=== PATIENT | female | born 1980 | race Caucasian/White ===

== ENCOUNTER 2020-09-04 01:44 | Outpatient (CLI) | payer BC, SELFPAY ==
[2020-09-04 18:12] LABS: SARS-CoV-2 RNA PCR Negative
== END 2020-09-04 01:45 | disposition home or self-care (01) ==
LOC: ANHCOVIDDT 01:45
PROVIDERS: Family Provider Family Medicine; PCP Family Medicine; Visit Provider Internal Medicine Gastroenterology
DX: Z01.812 Encounter for preprocedural laboratory examination (principal); Z20.822 Contact with and (suspected) exposure to COVID-19
CPT/HCPCS: C9803; U0003; U0005

== ENCOUNTER 2020-09-07 02:35 | Day surgery (SDC) | payer BC, SELFPAY ==
[2020-08-22 14:13] VITALS: BMI 31.6
--- NOTE | 2020-09-05 15:39 | WPDANESEPPF ---
Anes - Initial Pre Proc Eval Procedure: Operation Date: 09/07/20 09:30 Proposed Procedures p Esophagogastroduodenoscopy - Yony Alexandra MD Date/Time: 09/05/20 15:39 Surgeon: Yony Alexandra MD Pre Op Diagnosis: abdominal pain Patient Data Age: 40 Gender: F Height: 1.65 m Weight: 86.3 kg Allergies Allergy/AdvReac Type Severity Reaction Status Date / Time No Known Allergies Allergy Mild Verified 09/07/20 08:27 Home Medications Medication Instructions Recorded Confirmed Type magnesium oxide 400 mg PO DAILY 08/01/20 09/07/20 History norethindrone 1.5 mg-ethinyl 1 tablet PO DAILY 08/01/20 09/07/20 History estradiol 30 mcg(21)/iron 75 mg(7) tablet peppermint oil 90 mg 90 mg PO BID #60 ea 08/01/20 09/07/20 Rx capsule,delayed,extended release sertraline 50 mg PO DAILY 09/07/20 09/07/20 History Patient hx anesthesia problems: none Family hx anesthesia problems: none PMFSH Past Medical History Medical History (Updated 09/07/20 @ 08:50 by Abram Guzman DO) Anxiety Major depressive disorder, single episode, moderate Surgical History Surgical History (Updated 09/05/20 @ 15:39 by Abram Guzman DO) History of tubal ligation Family History Family History Grandparent Family history of Alzheimer's disease Family history of cardiovascular disease Mother Depression Family history of Alzheimer's disease Father Family history of malignant neoplasm of thyroid Other Family history of glaucoma Family history of hypercholesterolemia Family history of malignant neoplasm of ovary Social History Social History Smoking status: Never smoker Alcohol intake: current Alcohol use details: RARE Living arrangements: with family Spiritual care concerns: No Anes - Eval Final PreProcedure Day of Procedure 09/05/20 15:39 Patient weight: obese Heart: regular rate and rhythm Lungs: clear to auscultation and normal air movement Airway: Mallampati scale class II Neurological: alert and oriented Last oral intake: >/= 8 hours ASA classification: II Emergent: no Anesthetic plan: proceed Anesthesia type and monitoring: general GIVS and standard monitoring Informed Consent: The patient's anesthetic plan and its attendant risks and benefits were discussed with the patient/family/POA. Questions were solicited and answers provided to the satisfaction of the patient/family/POA.
[2020-09-07 08:29] VITALS: BP 120/65; PULSE 77; RESP 17; TEMP 36.5; O2SAT 98; BMI 32.8
[2020-09-07] MEDS: LACTATED RINGERS 1,000 ML 150 ML IV CONT (08:38)
--- NOTE | 2020-09-07 09:31 | PM.HPGS ---
History of Present Illness History of Present Illness Consent: Risks, benefits, and alternatives have been discussed and questions answered. Patient agrees to proceed with procedure. Chief complaint: abdominal pain Narrative: Catracho Gagnon is a 40 year old female with abdominal pain and bloating, better with low-fodmap diet Review of Systems Constitutional: Constitutional: Denies headache(s) and Denies weakness Eyes: Eyes: Denies blurry vision ENT: Reports Normal hearing present, Denies headache(s) and Denies neck pain Cardiovascular: Cardiovascular: Denies chest pain and Denies dyspnea Respiratory: Respiratory: Denies dyspnea Gastrointestinal: Gastrointestinal: Reports no additional gastrointestinal complaints Genitourinary: Genitourinary: Denies dysuria Musculoskeletal: Musculoskeletal: Denies neck pain Integumentary/Breasts: Skin/Breast: Denies dry skin Neurologic: Reports Normal hearing present, Denies headache(s) and Denies weakness Psychiatric: Psychiatric: Denies anxiety Endocrine: Endocrine: Denies change in body appearance Hematologic/Lymphatic: Hematologic/Lymphatic: Denies easy bleeding Allergic/Immunologic: Allergic/Immunologic: Denies urticaria PMFSH Past Medical History Medical History (Updated 09/07/20 @ 08:50 by Abram Guzman DO) Anxiety Major depressive disorder, single episode, moderate Surgical History Surgical History (Updated 09/05/20 @ 15:39 by Abram Guzman DO) History of tubal ligation Family History Family History Grandparent Family history of Alzheimer's disease Family history of cardiovascular disease Mother Depression Family history of Alzheimer's disease Father Family history of malignant neoplasm of thyroid Other Family history of glaucoma Family history of hypercholesterolemia Family history of malignant neoplasm of ovary Social History Social History Smoking status: Never smoker Alcohol intake: current Alcohol use details: RARE Living arrangements: with family Spiritual care concerns: No Meds Home Medications and Allergies Home Medications Medication Instructions Recorded Confirmed Type magnesium oxide 400 mg PO DAILY 08/01/20 09/07/20 History norethindrone 1.5 mg-ethinyl 1 tablet PO DAILY 08/01/20 09/07/20 History estradiol 30 mcg(21)/iron 75 mg(7) tablet peppermint oil 90 mg 90 mg PO BID #60 ea 08/01/20 09/07/20 Rx capsule,delayed,extended release sertraline 50 mg PO DAILY 09/07/20 09/07/20 History Allergies Allergy/AdvReac Type Severity Reaction Status Date / Time No Known Allergies Allergy Mild Verified 09/07/20 08:27 Vital Signs Vital Signs - 24 hr 09/07/20 08:29 Temperature 97.7 F Pulse Rate 77 Respiratory Rate 17 Blood Pressure 120/65 Pulse Oximetry 98 Exam Const: General: comfortable and no acute distress HENMT: General nose exam: Normal nares present Eyes: General: appearance normal, both eyes and all related structures Neck: Neck: no JVD Resp: Auscultation: clear to auscultation bilaterally Cardio: Rate: regular rate Rhythm: regular rhythm GI: Inspection: non-distended GI Palp: Yes Soft to palpation Skin: General skin exam: normal color Neuro: General: gait normal Speech: normal speech Extrem: General: normal to inspection Psych: Mental Status: mental status grossly normal Assessment and Plan Assessment and plan (1) Abdominal bloating: Code(s): R14.0 - Abdominal distension (gaseous) Status: Acute Assessment and Plan: egd with bx
[2020-09-07] MEDS: BENZOCAINE (*SP) 60 ML SPRAY CAN (HURRICAINE) 1 SPRAY MUCOUS MEM (09:38)
[2020-09-07 09:49] VITALS: BP 86/52; PULSE 84; RESP 19; O2SAT 99
[2020-09-07 09:59] VITALS: BP 97/63; PULSE 77; RESP 20; O2SAT 99
[2020-09-07 10:09] VITALS: BP 94/58; PULSE 67; RESP 19; O2SAT 99
[2020-09-07 10:19] VITALS: BP 102/64; PULSE 66; RESP 18; O2SAT 99
== END 2020-09-07 10:33 | disposition home or self-care (01) ==
PROVIDERS: Family Provider Family Medicine; PCP Family Medicine; Visit Provider Internal Medicine Gastroenterology
PROC: 0DJ08ZZ Inspection of Upper Intestinal Tract, Via Natural or Artificial Opening Endoscopic (ICD-10-PCS; CPT 43235; principal; 2020-09-07 09:30)
DX: R10.9 Unspecified abdominal pain (principal); K30 Functional dyspepsia; R14.0 Abdominal distension (gaseous); K29.60 Other gastritis without bleeding; F41.9 Anxiety disorder, unspecified; F32.9 Major depressive disorder, single episode, unspecified; E66.9 Obesity, unspecified; Z68.32 Body mass index [BMI] 32.0-32.9, adult
CPT/HCPCS: 43239; 87081; 88305; J2001; J2704; J7120

== ENCOUNTER 2023-11-29 20:49 | Emergency (ER) | payer BC, SELFPAY ==
[2023-11-29 21:02] VITALS: BP 102/63; PULSE 69; RESP 13; TEMP 36.6; O2SAT 100
--- NOTE | 2023-11-29 22:18 | ED.WOUNDLAC ---
HPI - Wound/Laceration General Chief Complaint: Wound/Laceration Stated Complaint: toe laceration Time Seen by Provider: 11/29/23 21:47 Source: patient Mode of arrival: ambulatory Limitations: no limitations History of Present Illness HPI narrative: This is a 43-year-old female who presents to the ED with chief complaint of laceration to the left pinky toe. Reports that she was walking through the room and try to avoid stepping on her dog. This caused her to step onto the edge of the laundry basket. Reports laceration to medial side of the toe near the base. Denies any further side of pain or injury. Denies numbness or weakness Related Data Home Medications Medication Instructions Recorded Confirmed magnesium oxide 400 mg PO DAILY 08/01/20 09/07/20 norethindrone 1.5 mg-ethinyl 1 tablet PO DAILY 08/01/20 09/07/20 estradiol 30 mcg(21)/iron 75 mg(7) tablet ([place] Fe 1.5/30 (28)) sertraline 50 mg tablet 50 mg PO DAILY 09/07/20 09/07/20 Allergies Allergy/AdvReac Type Severity Reaction Status Date / Time No Known Allergies Allergy Mild Verified 10/15/20 14:33 Review of Systems Review of Systems: All systems as dictated in HPI [facility] Past Medical History Medical History (Updated 11/30/23 @ 00:00 by Thomas Gambino) Anxiety Erosive gastritis Gastric erosion Irritable bowel syndrome Major depressive disorder, single episode, moderate Surgical History Surgical History (Updated 01/28/21 @ 14:14 by Yana Fink MD) History of tubal ligation Hx of colonoscopy 6.12.21 normal. repeat age 47 Family History Family History Grandparent Family history of Alzheimer's disease Family history of cardiovascular disease Mother Depression Family history of Alzheimer's disease Father Family history of malignant neoplasm of thyroid Other Family history of glaucoma Family history of hypercholesterolemia Family history of malignant neoplasm of ovary Social History Social History Smoking status: Never smoker Alcohol intake: current Alcohol use details: RARE Living arrangements: with family Spiritual care concerns: No Exam Narrative: GENERAL: Well-appearing, well-nourished, and in no acute distress. HEAD: Normocephalic, atraumatic. EYES: PERRLA and EOMI. ENT: Nares clear, no rhinorrhea or epistaxis. Mucous membranes moist. Oropharynx without tonsillar hypertrophy exudate or other lesions. NECK: Supple. No adenopathy or masses. CHEST: No respiratory distress. Clear to auscultation. No wheezes rales or rhonchi HEART: Regular rate and rhythm. No murmur heard. Normal peripheral pulses. ABDOMEN: Soft, nontender, nondistended, normal active bowel sounds. MSK: Normal range of motion. No edema. SKIN: 2 cm laceration that wraps from anterior to posterior base of left 5th pinky toe on the medial side. Neurovascular intact distally NEURO: Alert and oriented x3. No focal deficits. PSYCH: Normal mood and affect. Course Vital Signs Vital signs: Vital Signs Temperature 97.8 F 11/29/23 21:02 Pulse Rate 69 11/29/23 21:02 Respiratory Rate 13 11/29/23 21:02 Blood Pressure 102/63 11/29/23 21:02 Pulse Oximetry 100 11/29/23 21:02 Oxygen Delivery Room Air 11/29/23 21:02 Temperature 98.2 F 11/29/23 23:24 Pulse Rate 89 11/29/23 23:24 Respiratory Rate 19 11/29/23 23:24 Blood Pressure 138/86 11/29/23 23:24 Pulse Oximetry 100 11/29/23 23:24 Oxygen Delivery Room Air 11/29/23 21:02 Procedures Laceration Laceration 1: Date: 11/29/23 Time: 23:03 Site: lower extremity (Right 5th toe) Side (If applicable): right Size (cm): 2 Description: linear Depth: simple, single layer Local Anesthetic: lidocaine 1% Amount of anesthesia used (mL): 2 Pre-repair: wound ex
[2023-11-29 23:24] VITALS: BP 138/86; PULSE 89; RESP 19; TEMP 36.8; O2SAT 100
== END 2023-11-29 23:13 | disposition home or self-care (01) ==
PROVIDERS: Emergency Provider Physician Assistant
DX: S91.115A Laceration without foreign body of left lesser toe(s) without damage to nail, initial encounter (principal); K58.9 Irritable bowel syndrome, unspecified; F41.9 Anxiety disorder, unspecified; W26.8XXA Contact with other sharp object(s), not elsewhere classified, initial encounter
CPT/HCPCS: 12001; 99282

== ENCOUNTER 2024-09-02 19:19 | Emergency (ER) | payer BC, SELFPAY ==
--- NOTE | ~2024-09-02 | XR_ITS ---
HISTORY: ankle injury COMPARISON: None TECHNIQUE: 2 limited views of the right ankle were performed. FINDINGS: Acute fractures involving the distal fibula and likely the syndesmosis with disruption of the Kohli ( with lateral dislocation of the distal fracture fragments). Significant soft tissue swelling bilaterally (medially more than laterally). Likely additional fracture within the distal tibia, with limited evaluation on the 2 view examination . IMPRESSION: Complex right ankle fracture, with disruption ankle mortise and lateral dislocation of t he distal fracture fragments. Reviewed, dictated and finalized at location A. ATRIC ANESTHESIOLOGIST IMPRESSION: Complex right ankle fracture, with disruption ankle mortise and la teral dislocation of the distal fracture fragments.
--- NOTE | ~2024-09-02 | XR_ITS ---
HISTORY: post reduction COMPARISON: 09/02/2024 approximately 45 minutes earlier TECHNIQUE: 3 views of the right ankle were performed FINDINGS: Post reduction imaging demonstrates improved alignment of the right ankle. Redemonstration of significant soft tissue swelling, as well as fracture deformity within the right a nkle. IMPRESSION: As above. Reviewed, dictated and finalized at location A. ER IMPRESSION: As above.
--- NOTE | ~2024-09-02 | CT_ITS ---
CLINICAL INDICATION: Right ankle fracture. COMPARISON: Reference is made with multiple plain film evaluations of the right ankle. TECHNIQUE: Computed tomography (CT) of the right ankle was performed without intravenous contrast. Th e dose-length product was 606.41 mGy-cm. FINDINGS/OBSERVATIONS: Acute oblique fracture of the right distal fibula. Comminuted fracture of the distal right tibia, along the posterior-most margin Significant soft tissue swelling is identified within the expected course of the syndesmosis for whic h disruption is suspected. IMPRESSION: Acute fracture of the lateral malleolus and the posterior malleolus likely with disruption of the syn desmosis, as detailed above. Reviewed, dictated and finalized at location A. D TECHNICIAN IMPRESSION: Acute fracture of the lateral malleolus and the posterior malleolus likely with disruption of the syndesmosis, as detailed above.
--- OUTSIDE RECORDS SUMMARY | 2024-09-02 19:21 | XMS_ITS | Clinical Summary ---
Author Organization [facility] Address [address] [place] [address] Care Team Providers Care Field Contact Person Name Role Phone Ricardo Gillis MD Primary Care Provider Allergies No known active allergies Medications LORazepam (ATIVAN) 1 mg tablet Take 1 tablet (1 mg total) by mouth 2 (two) times a day as needed (abd spasm) for up to 7 days 14 tablet 2 Active Additional Information Patient not taking.Reported on 01/11/2024 ergocalciferol (VITAMIN D) 50,000 unit capsule 4 Active levoFLOXacin (LEVAQUIN) 500 mg tablet TAKE 1 TABLET BY MOUTH DAILY FOR 10 DAYS 4 Active levonorgestreL (LILETTA) 20.4 mcg/24 hr (8 yrs) 52 mg IUD by intrauterine route once Active sertraline (ZOLOFT) 50 mg tabletIndicatio ns:Anxiety Take 1 tablet (50 mg total) by mouth daily 90 tablet 3 4 Active meloxicam (MOBIC) 15 mg tablet Take 1 tablet (15 mg total) by mouth daily 30 tablet 4 Active Active Problems Problem Noted Date Diagnosed Date Acute pain of right knee 03/14/2024 Injury of right knee 03/14/2024 Biliary tract disease 04/23/2022 Abdominal pain 04/22/2022 Right upper quadrant pain 04/11/2022 Overview (04/22/2022): Added automatically from request for surgery [id number] 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 Patient encounter status 10/11/2015 Overview (11/15/2016): Postoperative follow-up Pilar cyst 09/13/2015 Overview (11/15/2016): Pilar cysts Surgical History Surgery Date Site/Laterality Comments SECTION COLONOSCOPY UPPER GASTROINTESTINAL ENDOSCOPY TUBAL LIGATION Medical History Medical History Date Comments Depression Chronic constipation Family History Medical History Relation Name Comments Heart disease Maternal Grandfather Dementia Maternal Grandmother Colon cancer Neg Hx Relation Name Status Comments Maternal Grandfather Maternal Grandmother Mother's Sister 1 Mother's Sister 2 Alive Other great aunt Alive ovarian cancer Social History Tobacco Use Types Packs/Day Years Used Date Smoking Tobacco: Never Tobacco Cessation:Counseling Given: Not Answered Alcohol Use Standard Drinks/Week Comments No 0 (1 standard drink = 0.6 oz pur e alcohol) AUDIT-C Answer Date Recorded Q1: How often do you have a drink containing alc ohol? 2-4 times a month 01/11/2024 Q2: How many drinks containi ng alcohol do you have on a typical day when you are drinking? 1 or 2 01/11/2024 Q3: How often do you have si x or more drinks on one occasion? 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 # 2: 05/08/2015 LTCS w/ BTL for Breech 39 5/7 weeks 7#15 Kadi . Last Filed Vital Signs Vital Sign Reading Time Taken Comments Blood Pressure 110/60 01/11/2024 1:00 PM CDT Pulse 78 04/23/2022 10:00 AM CDT Temperature 36.8 ??C (98.3 ??F) 04/23/2022 10:00 AM C DT Respiratory Rate 16 04/23/2022 10:00 AM CDT Oxygen Saturation 100% 04/23/2022 10:00 AM CDT Inhaled Oxygen Concentration - - Weight 90.7 kg (200 lb) 03/14/2024 3:34 PM CDT Height 167.6 cm (5' 6 ) 03/14/2024 3:34 PM CDT Body Mass Index 32.28 03/14/2024 3:34 PM CDT Plan of Treatment Health Maintenance Due Date Last Done Comments Depression Screening 1982 Hepatitis C Screening 1982 Varicella Vaccines (1 of 2 - 13+ 2-dose series) 1995 Hepatitis B Screening 2000 Covid-19 Vaccine (2023-2 5 season) 2024 07/02/2021, 11/16/2020, 10/26/2020 Influenza Vaccine (#1) 2024 , 10/19/2018 Breast Cancer Screening-Mammogram 08/11/2024 08/11/2023, 08/11/2023, 07/23/2022 Cervical Cancer Screening 01/10/2025 01/11/2024 Regular Well Visit/Exam 18-64 01/10/2025 01/11/2024 DTaP/Tdap/Td Vaccine (2 - Td or Tdap) 05/03/2030 05/03/2020 HPV Vaccines Aged Out No longer eligi ble based on patient's age to complete this topic Pneumococcal vaccine <65 Aged Out No longer eligible based on patient's age to complete this topic Medical Devices Explanted Type Area Network Professional Device Identifier Shelf Expiration Date Model / Serial / Lot [employer] Mar Wallflex 8mm 8.5fr 60mm 194cm Rapid Exchange Full Cover Closed [id number] - [id number] Implanted:Qty: 1 on 04/21/2022 by Bipin Whitlock MD at [facility] Explanted:Qty: 1 on 04/23/2022 by Bipin Whitlock MD at [facility] Stent N/A: Bile Duct Gary Scientific Mar [id number] 09/24/2023 [id number] / / [id number] Barajas Flexi-Stent 7fr 3cm Small Pigtail Flexible .035in Stent [id number] - [id number] Implanted:Qty: 1 on 04/21/2022 by Bipin Whitlock MD at [facility] Explanted:Qty: 1 on 04/23/2022 by Bipin Whitlock MD at [facility] Stent N/A: Bile Duct [employer] [id number] 08/10/2021 [id number] / / [id number] Procedures Procedure Name Priority Date/Time Associated Diagnosis Comments PAP AND HPV, REFLEX TO HPV GENOTYPES Routine 01/11/2024 3:04 PM CDT Cervical cancer screening SCREENING MAMMOGRAM BILATERAL W JORGE Schedule Routine, Read Routine (OP Routine) 08/11/2023 11:40 AM MARINE TECHNICIAN Screening mammogram, encounter for from Last 3 Months or Most Recently Relevant to Health Maintenance Results * Pap and HPV, reflex to HPV Genotypes (01/11/2024 3:04 PM CDT) Clinical indication Comment [facility] - 01 Comment:NEGATIVE FOR INTRAEP ITHELIAL LESION OR MALIGNANCY. Specimen adequacy: Comment [facility] - 01 Comment: Satisfactory for evaluation. ??Endocervical and/or squamous metaplastic cells (endocervical component) are present. Clinician provided ICD10 Comment [facility] - 01 Comment:Z12.4 Performed by Comment [facility] - 01 Comment:Leo Arceo totechnologist (ASCP) . . [facility] - 01 Note: Comment [facility] - 01 Comment: The Pap smear is a screening test designed to aid in the detection of premalignant and malignant conditions of the uterine cervix. ??It is not a diagnostic procedure and should not be used as the sole means of detecting cervical cancer. ??Both false-positive and false-negative reports do occur. Test methodology Comment [facility] - 01 Comment: This liquid based ThinPrep(R) pap test was screened with the use of an image guided system. HPV Aptima Negative Negative [facility] 02 Comment: This nucleic acid amplification test detects fourteen high-risk HPV types (16,18,31,33,35,39,45,51,52,56,58,59,66,68) without differentiation. HPV Genotype Reflex Comment [facility] - 01 Comment:Criteria not met, HP V Genotype not performed. Thin prep 01/11/2024 3:04 PM CDT 01/12/2024 Narrative [facility] - 01/13/2024 12:11 PM CDT Performed at: ??01 - [facility] ??[id number] Scribing Machine Operator: Tianna Cody MD, Phone: ??[phone] Performed at: ??02 - [facility] ??[id number] Scribing Machine Operator: Tianna Cody MD, Phone: ??[phone] Specimen Comment: Source.............Cervix;Endocervix Specimen Comment: No. of containers..01 ThinPrep Vial Jazmín Day NP LAB CYTOLOGY ORDERABLES Final Result [facility] - 01 LAB [facility] 02 * Screening Mammogram Bilateral W Jorge (08/11/2023 11:40 AM MARINE TECHNICIAN) Anatomical Region Laterality Modality Breast Bilateral Mammography Addenda Addendum by Abbi Ness MD on 08/12/2023 3:22 PM MARINE TECHNICIAN Overall Assessment: 2 - Benign Narrative 08/11/2023 11:46 AM MARINE TECHNICIAN Examination: Screening Mammogram Bilateral W Jorge: 08/11/23 Clinical: Screening mammogram, encounter for. Prior Study Comparisons: Comparison was made to the prior available relevant studies at the time of interpretation. Findings: Bilateral No significant masses, malignant type calcifications, skin thickening, nipple retraction, or significant lymphadenopathy is noted in either breast. ??The CAD review showed no significant findings. The breasts are heterogeneously dense, which may obscure small masses. The patient will be notified of results by letter. Impression: BI-RADS?? ATLAS category (overall): 2 - Benign ?? There is no mammographic evidence of malignancy. Routine Screening Mammogram in 1 Yr is recommended for bilateral Overall Assessment: 2 - Benign us Self Screening Mammogram IMG MAMMO PROCEDURES Ed ited Result - Final from Last 3 Months or Most Recently Relevant to Health Maintenance Insurance [facility] FEDERAL [facility] FEDERAL Advance Directives For more information, please contact: [phone] * Full Code (Latest Code Status on File) Date Activated Date Inactivated Comments 04/09/2022 9:33 AM 04/09/2022 8:07 PM Care Teams Field Contact Person Relationship Specialty Start Date End Date Ricardo Gillis MD [address] [facility] [address] [place] [address] PCP - General Endocrinology Diabetes & Metabolism 04/23/22
--- OUTSIDE RECORDS SUMMARY | 2024-09-02 19:21 | XMS_ITS | Referral Summary ---
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 Gender Identity Not on file Sexual Orientation Not on file Last Filed Vital Signs Vital Sign Reading [...] 03/14/2024 3:34 PM CDT Plan of Treatment Not on file Medical Devices Explanted Type Area Tube Winder Hand Device Identifier Shelf Expiration Date Model / Serial / Lot [place] [employer] Bernard Wallflex 8mm 8.5fr 60mm 194cm Rapid Exchange Full Cover Closed [id number] - [id number] Implanted:Qty: 1 on 04/21/2022 by Bipin Whitlock MD at Explanted:Qty: 1 on 04/23/2022 by Bipin Whitlock MD at Stent N/A: Bile Duct [employer] Bernard [id number] 09/24/2023 [id number] / / [id number] [place] Barajas Flexi-Stent 7fr 3cm Small Pigtail Flexible .035in Stent [id number] - [id number] Implanted:Qty: 1 on 04/21/2022 by Bipin Whitlock MD at Explanted:Qty: 1 on 04/23/2022 by Bipin Whitlock MD at Stent N/A: Bile Duct [employer] [id number] 08/10/2021 [id number] / / [id number] Procedures Procedure Name Priority Date/Time Associated Diagnosis Comments PAP AND HPV, REFLEX TO HPV GENOTYPES Routine 01/11/2024 3:04 PM CDT Cervical cancer screening SCREENING MAMMOGRAM BILATERAL W SHANNAN Schedule Routine, Read Routine (OP Routine) 08/11/2023 11:40 AM FRICTION PAINT MACHINE TENDER Screening mammogram, encounter for from Last 3 [...] Comment [facility] - 01 Comment:Leo Arceo totechnologist (ASC) . . [facility] - 01 Note: Comment [...] guided system. HPV Aptima Negative Negative [facility] 02 Comment: This nucleic acid amplification test detects fourteen high-risk HPV types (16,18,31,33,35,39,45,51,52,56,58,59,66,68) without differentiation. HPV Genotype Reflex Comment [facility] - 01 Comment:Criteria not met, HP V Genotype not performed. Thin prep 01/11/2024 3:04 PM CDT 01/12/2024 Narrative [facility] - 01/13/2024 12:11 PM CDT Performed at: ??01 - [facility] ??[id number] Bariatric Surgeon: Tianna Cody MD, Phone: ??[phone] Performed at: ??02 - [facility] [address] ??[id number] Bariatric Surgeon: Tianna Cody MD, Phone: ??[phone] Specimen Comment: Source.............Cervix;Endocervix Specimen Comment: No. of containers..01 ThinPrep Vial Jazmín Day DRIVER MESSENGER LAB CYTOLOGY ORDERABLES Final Result Performing Organization Address City/State/[facility] - 01 [facility] 02 * Screening Mammogram Bilateral W Shannan (08/11/2023 11:40 AM FRICTION PAINT MACHINE TENDER) Anatomical Region Laterality Modality Breast Bilateral Mammography Addenda Addendum by Abbi Ness MD on 08/12/2023 3:22 PM FRICTION PAINT MACHINE TENDER Overall Assessment: 2 - Benign Narrative 08/11/2023 11:46 AM FRICTION PAINT MACHINE TENDER Examination: Screening Mammogram Bilateral W Shannan: 08/11/23 Clinical: Screening mammogram, encounter for. Prior [...] to Health Maintenance Insurance [facility] FEDERAL [facility] FEDERAL FEDERAL Advance Directives For more information, please contact: [phone] * Full Code (Latest Code Status on File) Date Activated Date Inactivated Comments 04/09/2022 9:33 AM 04/09/2022 8:07 PM Care Teams Shop Clerk Relationship Specialty Start Date End Date Ricardo Gillis MD [address] [address] [place] [address] PCP - General Endocrinology Diabetes & Metabolism 04/23/22
--- OUTSIDE RECORDS SUMMARY | 2024-09-02 19:21 | XMS_ITS | Patient Health Record ---
Author Organization [facility] Address [address] [place] [address] Care Team Providers Care Delicatessen Clerk Name Role Phone Carlin GARCÍA, Ricardo Primary Care Provider Nella CHICAS ARSON INVESTIGATOR, JANESSA Unavailable [phone] ALLERGIES No Known Allergies REASON FOR REFERRAL No Information MEDICATIONS Medication SIG (Take, Route, Frequency, Duration) Notes Start Date End Date Status Famotidine 40 MG TAKE 1 TABLET BY STACIE TWICE DAILY AT BEDTIME for 90 Active Hyoscyamine Sulfate 0.125 MG DISSOLVE 1 TABLET UNDER THE TONGUE FOUR TIMES DAILY NEEDED for 90 Not-Taking Odalis FE 1.5/30 1.5-30 MG-MCG 1 tablet Orally Once a day Active Amitriptyline HCl 50 MG 1 tablet at bedt david Orally Once a day Active Sertraline HCl 50 MG 1 tablet Orally Onc e a day Active PLAN OF TREATMENT Pending Test Test Name Order Date Endoscopic Retrograde Cholangiopancreato graphy (ERCP) 04/11/2022 MRCP 03/03/2022 Insurance Providers Payer Name Payer Address Payer Phone Subscriber Number Group Number Insured Name Patient Relationship to Insured Coverage Start Date Coverage End Date BCBS-FE D [address] [place] [address] [phone] [id number] Aguayo Self - patient is the insured MEDICAL (GENERAL) HISTORY Surgical History Surgery Date(Month/Year) section 2014 colonoscopy- repeat in 10 years 2020 EGD 2020
--- OUTSIDE RECORDS SUMMARY | 2024-09-02 19:22 | XMS_ITS | Patient Health Record ---
Author Organization [employer] Address [address] [facility]. [address] [place] [id number] Care Team Providers Care Art Manager Name Role Phone Yana Fink MD Primary Care Provider Unav ailable David Casanova Unavailable [phone] Reason For Referral No Information Medications Medication SIG (Take, Route, Fr equency, Duration) Notes Start Date End Date Status Sertraline HCl Activ e OTC/Vitamins Magnesium Active BCP Active Social History Tobacco Use: Social History Observation Description Date Details (start date - stop date) Never Smoker NA - NA Tobacco Use/Smoking Question Answer Notes Are you a nonsmoker Problems Problem Type SNOMED Code ICD Code Onset Dates Problem Status W/U Status Risk Notes Problem 075229112 Family history of colonic polyps (Z83.71) Active confirmed She has a fa preston history of colon polyps in her father. She and her siblings were advised to have a colonoscopy starting at age 41. Problem 91488162 Abdominal pain (R10.9) Active confirmed She complains o f diffuse abdominal pain, which she describes as feeling like gas. It is occurring several times a week and when it does occur, it is debilitating. Symptoms are not relieved with having a bowel movement. Differential diagnosis includes constipation predominant IBS, slow transit constipation, SIBO, food sensitivities, or others. Problem 359511260 Bloating (R14.0) Active confirmed She has significant abdominal bloating. Biopsies on her upper endoscopy were negative for celiac disease. Other considerations include food sensitivities or SIBO. Problem 95380744 Constipation (K59.00) Active confirmed Problem 152095992 Abnormal bowel habits (R19.8) Active confirmed She has struggled with constipation most of her adult life. She started taking a magnesium supplement, which has helped with regularity. On her current regimen, she is having a bowel movement every 1-2 days. There has not been any blood in the stool. Plan Of Treatment Pending Test Test Name Order Date Colonoscopy 12/17/2020 Insurance Providers Payer Name Payer Address Payer Phone Subscriber Number Group Number Insured Name Patient Relationship to Insured Coverage Start Date Coverage End Date [address] [place] [phone] [id number] Vidal Gagnon Spouse - patient is the spouse of the insured Medical (General) History Medical History History ICD Code Depression Surgical History Surgery Date(Month/Year) Endoscopy (Outside Provider) 2019
[2024-09-02 19:30] VITALS: BP 102/80; PULSE 93; RESP 20; TEMP 36.3; O2SAT 100
[2024-09-02] MEDS: HYDROcodone/acetaminophen (*CRX) 5-325 MG TABLET 1 TAB PO ×2 (19:46→22:50)
--- OUTSIDE RECORDS SUMMARY | 2024-09-02 20:05 | XMS_ITS | Clinical Summary ---
Author Organization [facility] Address [address] [place] [id number] Care Team Providers Care Supervisor Metal Furniture Assembly Name Role Phone Unavailable Primary Care Provider Unavailabl e Encounters Date Type Department Care Team Description 08/31/2024 External Device Data STL ABSTRACTION Provider, Abstract 08/30/2024 External Device Data STL ABSTRACTION Provider, Abstract 07/12/2024 External Device Data STL ABSTRACTION Provider, Abstract 06/14/2024 External Device Data STL ABSTRACTION Provider, Abstract from Last 3 Months Social History Tobacco Use Types Packs/Day Years Used Date Smoking Tobacco: Never Assessed Comments Unknown Sex and Gender Information Value Date Recorded Sex Assigned at Not on file Legal Sex Female 1:25 PM CDT Gender Identity Not on file Sexual Orientation Not on file Plan of Treatment Health Maintenance Due Date Last Done Comments Pre-Diabetes and Diabetes Screening 1982 DTAP/TDAP/TD VACCINES (1 - Tdap) 2001 HEPATITIS B VACCINES (1 of 3 - 19+ 3-dose series) 2001 CERVICAL CANCER SCREENING 2012 INFLUENZA VACCINE (#1) 2024 BREAST CANCER SCREENING 08/11/2024 08/11/19 24, 07/23/2022 HPV VACCINES Aged Out No longer eligi ble based on patient's age to complete this topic PNEUMOCOCCAL VACCINE 0-64 YEARS Aged Out No longer eligible b ased on patient's age to complete this topic Insurance BCBS [facility]AL [facility]
--- OUTSIDE RECORDS SUMMARY | 2024-09-02 20:05 | XMS_ITS | Clinical Summary ---
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 Patient encounter [...] on file Legal Sex Female 8:58 AM MICA PLATE LAYER Gender Identity Not on file Sexual Orientation [...] this topic Medical Devices Explanted Type Area Label Maker Device Identifier Shelf Expiration Date Model / Serial / Lot [employer] Mar Wallflex 8mm 8.5fr 60mm 194cm Rapid Exchange Full Cover Closed [id number] - [id number] Implanted:Qty: 1 on 04/21/2022 by Bipin Whitlock MD at [facility] Explanted:Qty: 1 on 04/23/2022 by Bipin Whitlock MD at [facility] Stent N/A: Bile Duct [employer] Mar [id number] 09/24/2023 [id number] / / [id number] [employer] [place] Flexi-Stent 7fr 3cm Small Pigtail Flexible .035in Stent [id number] - [id number] Implanted:Qty: 1 on 04/21/2022 by Bipin Whitlock MD at [facility] Explanted:Qty: 1 on 04/23/2022 by Bipin Whitlock MD at [facility] Stent N/A: Bile Duct [employer] [id number] 08/10/2021 [id number] / / [id number] Procedures Procedure Name Priority Date/Time Associated Diagnosis Comments PAP AND HPV, REFLEX TO HPV GENOTYPES Routine 01/11/2024 3:04 PM CDT Cervical cancer screening SCREENING MAMMOGRAM BILATERAL W JORGE Schedule Routine, Read Routine (OP Routine) 08/11/2023 11:40 AM MICA PLATE LAYER Screening mammogram, encounter for from Last 3 [...] 12:11 PM CDT Performed at: ??01 - [facility] ??[id number] Sweeper Cleaner Industrial: Tianna Cody MD, Phone: ??[phone] Performed at: ??02 - [facility] ??[id number] Sweeper Cleaner Industrial: Tianna Cody MD, Phone: ??[phone] Specimen Comment: Source.............Cervix;Endocervix Specimen Comment: No. of containers..01 ThinPrep Vial Jazmín Day NP LAB CYTOLOGY ORDERABLES Final Result [facility] - 01 LAB MAR 02 * Screening Mammogram Bilateral W Jorge (08/11/2023 11:40 AM MICA PLATE LAYER) Anatomical Region Laterality Modality Breast Bilateral Mammography Addenda Addendum by Abbi Ness MD on 08/12/2023 3:22 PM MICA PLATE LAYER Overall Assessment: 2 - Benign Narrative 08/11/2023 11:46 AM MICA PLATE LAYER Examination: Screening Mammogram Bilateral W Jorge: 08/11/23 [...] Most Recently Relevant to Health Maintenance Insurance [facility] FEDERAL [facility] FEDERAL Advance Directives For more information, please contact: [phone] * Full Code (Latest Code Status on File) Date Activated Date Inactivated Comments 04/09/2022 9:33 AM 04/09/2022 8:07 PM Care Teams Community Service Worker Relationship Specialty Start Date End Date Ricardo Gillis MD [address] [facility] [address] [place] [address] PCP - General Endocrinology Diabetes & Metabolism 04/23/22
--- OUTSIDE RECORDS SUMMARY | 2024-09-02 20:05 | XMS_ITS | Referral Summary ---
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 Patient encounter [...] on file Legal Sex Female 8:58 AM STOCK SPECULATOR Gender Identity Not on file Sexual Orientation [...] on file Medical Devices Explanted Type Area Drill Sergeant Device Identifier Shelf Expiration Date Model / Serial / Lot [employer] Bernard Wallflex 8mm 8.5fr 60mm 194cm Rapid Exchange Full Cover Closed [id number] - [id number] Implanted:Qty: 1 on 04/21/2022 by Bipin Whitlock MD at [facility] Explanted:Qty: 1 on 04/23/2022 by Bipin Whitlock MD at [facility] Stent N/A: Bile Duct [employer] Bernard [id number] 09/24/2023 [id number] / / [id number] [employer] Barajas Flexi-Stent 7fr 3cm Small Pigtail Flexible .035in Stent 6571 - [id number] Implanted:Qty: 1 on 04/21/2022 by Bipin Whitlock MD at [facility] Explanted:Qty: 1 on 04/23/2022 by Bipin Whitlock MD at [facility] Stent N/A: Bile Duct [employer] [id number] 08/10/2021 [id number] / / [id number] Procedures Procedure Name Priority Date/Time Associated Diagnosis Comments PAP AND HPV, REFLEX TO HPV GENOTYPES Routine 01/11/2024 3:04 PM CDT Cervical cancer screening SCREENING MAMMOGRAM BILATERAL W SHANNAN Schedule Routine, Read Routine (OP Routine) 08/11/2023 11:40 AM STOCK SPECULATOR Screening mammogram, encounter for from Last 3 [...] 12:11 PM CDT Performed at: ??01 - [facility] ??[id number] Gold Leaf Laborer: Tianna Cody MD, Phone: ??[phone] Performed at: ??02 - [facility] [address] ??[id number] Gold Leaf Laborer: Tianna Cody MD, Phone: ??[phone] Specimen Comment: Source.............Cervix;Endocervix Specimen Comment: No. of containers..01 ThinPrep Vial Jazmín Day CREDIT CLERK LAB CYTOLOGY ORDERABLES Final Result Performing Organization Address City/State/[facility] Co de Phone Number [facility] - 01 LAB BERNARD 02 * Screening Mammogram Bilateral W Shannan (08/11/2023 11:40 AM STOCK SPECULATOR) Anatomical Region Laterality Modality Breast Bilateral Mammography Addenda Addendum by Abbi Ness MD on 08/12/2023 3:22 PM STOCK SPECULATOR Overall Assessment: 2 - Benign Narrative 08/11/2023 11:46 AM STOCK SPECULATOR Examination: Screening Mammogram Bilateral W Shannan: 08/11/23 [...] Most Recently Relevant to Health Maintenance Insurance [facility] FEDERAL [facility] FEDERAL FEDERAL Advance Directives For more information, please contact: [phone] * Full Code (Latest Code Status on File) Date Activated Date Inactivated Comments 04/09/2022 9:33 AM 04/09/2022 8:07 PM Care Teams Manager Editorial Relationship Specialty Start Date End Date Ricardo Gillis MD [address] [facility] [address] [place] [address] PCP - General Endocrinology Diabetes & Metabolism 04/23/22
--- OUTSIDE RECORDS SUMMARY | 2024-09-02 20:05 | XMS_ITS | Encounter Summary ---
Author Organization [facility] Address [address] [place] [address] Care Team Providers Care Panel Cutter Name Role Phone Unavailable Primary Care Provider Unavailabl e Encounter Details Date Type Department Care Team (Late st Contact Info) Description 08/31/2024 External Device Data ST[facility] ABSTRACTION Provider, Abstract NO ADDRESS ON FILE Social History Tobacco Use Types Packs/Day Years Used Date Smoking Tobacco: Never Assessed Comments Unknown Sex and Gender Information Value Date Recorded Sex Assigned at Not on file Legal Sex Female 1:25 PM CDT Gender Identity Not on file Sexual Orientation Not on file documented as of this encounter Plan of Treatment Not on file documented as of this encounter Visit Diagnoses Not on filedocumented in this encounter
--- NOTE | 2024-09-02 20:19 | ED_ITS ---
HPI - General Adult General Chief complaint: Extremity Injury, Lower Stated complaint: right ankle injury Time Seen by Provider: 09/02/24 19:58 History of Present Illness HPI narrative: Patient is a 44-year-old female presents emergency department with chief complaint of right ankle pain. Patient reports that she slipped on the ice reports she rolled her ankle and reports there is a deformity of the ankle Related Data Home Medications ?Medication ?Instructions ?Recorded ?Confirmed ?Last Taken ?Type magnesium oxide 400 mg PO DAILY 08/01/20 09/07/20 Unknown History norethindrone 1.5 mg-ethinyl 1 tablet PO DAILY 08/01/20 09/07/20 Unknown History estradiol 30 mcg(21)/iron 75 mg(7) tablet (Blisovi Fe 1.5/30 (28)) sertraline 50 mg tablet 50 mg PO DAILY 09/07/20 09/07/20 Unknown History Allergies Allergy/AdvReac Type Severity Reaction Status Date / Time No Known Allergies Allergy Mild Verified 10/15/20 14:33 Review of Systems Review of Systems: A 10 system review of systems was completed on the patient and is negative except for what is stated in the HPI. Nursing and ancillary documentation was reviewed. PMFSH Past Medical History Medical History Erosive gastritis Irritable bowel syndrome Gastric erosion Anxiety Major depressive disorder, single episode, moderate Surgical History Surgical History Hx of colonoscopy 6.12.21 normal. repeat age 47 History of tubal ligation Family History Family History Grandparent Family history of Alzheimer's disease Family history of cardiovascular disease Mother Depression Family history of Alzheimer's disease Father Family history of malignant neoplasm of thyroid Other Family history of glaucoma Family history of hypercholesterolemia Family history of malignant neoplasm of ovary Social History Social History Smoking status: Never smoker Alcohol intake: current Alcohol use details: RARE Living arrangements: with family Spiritual care concerns: No Exam Narrative: GENERAL: Well-appearing, well-nourished, and in no acute distress. HEAD: Normocephalic, atraumatic. EYES: PERRLA and EOMI. ENT: Nares clear, no rhinorrhea or epistaxis. Mucous membranes moist. NECK: Supple. CHEST: Clear to auscultation. No respiratory distress. HEART: Regular rate and rhythm. No murmur heard. Normal peripheral pulses. ABDOMEN: Soft, nontender, nondistended, normal active bowel sounds. EXTREMITIES: Normal range of motion there is swelling present to the lateral malleolus of the right ankle.. No edema. SKIN: Warm, dry, no rash. NEURO: No focal deficits. Alert and oriented x3. PSYCH: Normal mood and affect. Course Vital Signs Vital signs: Vital Signs Temperature 36.3 C L 09/02/24 19:30 Pulse Rate 93 09/02/24 19:30 Respiratory Rate 20 09/02/24 19:30 Blood Pressure 102/80 09/02/24 19:30 Pulse Oximetry 100 09/02/24 19:30 Oxygen Delivery Room Air 09/02/24 19:30 Temperature 36.3 C L 09/02/24 19:30 Pulse Rate 71 09/02/24 22:30 Respiratory Rate 16 09/02/24 22:30 Blood Pressure 114/69 09/02/24 22:30 Pulse Oximetry 98 09/02/24 22:30 Oxygen Delivery Room Air 09/02/24 19:30 Procedures Orthopedic Joint Reduction Joint #1: Orthopedic Joint Reduction Date: 09/02/24 Orthopedic Joint Reduction Time: 21:23 Side: right Joint Reduction Location: ankle Analgesia: other (IV pain control) Technique used: direct manipulation Post-reduction neuro exam: intact Post-reduction vascular: intact Post Reduction X-Ray Obtained: Yes Post Reduction X-Ray Results: reduced Splint Applied: Yes Patient Tolerated Procedure: well and no complications Medical Decision Making MDM Narrative Medical decision making narrative: Differential diagnosis includes fracture, dislocation Plain film x-rays were obtained showed aComplex right ankle fracture, with disruption ankle mortise and lateral dislocation of the distal fracture fragments CT scan of the right ankle showed FINDINGS/OBSERVATIONS: Acute oblique fracture of the right distal fibula. Comminuted fracture of the distal right tibia, along the posterior-most margin Significant soft tissue swelling is identified within the expected course of the syndesmosis for which disruption is suspected. IMPRESSION: Acute fracture of the lateral malleolus and the posterior malleolus likely with disruption of the syndesmosis, as detailed above. Patient was placed in crutches the patient was offered local orthopedic follow- up the patient does report that she has a patient relationship with a orthopedic surgeon at [facility] and would like to follow-up with her orthopedic surgeon. The patient was instructed to call her surgeon in the morning to schedule an appointment Vital Signs Vital Signs: Vital Signs Temperature 36.3 C L 09/02/24 19:30 Pulse Rate 93 09/02/24 19:30 Respiratory Rate 20 09/02/24 19:30 Blood Pressure 102/80 09/02/24 19:30 Pulse Oximetry 100 09/02/24 19:30 Oxygen Delivery Room Air 09/02/24 19:30 Temperature 36.3 C L 09/02/24 19:30 Pulse Rate 71 09/02/24 22:30 Respiratory Rate 16 09/02/24 22:30 Blood Pressure 114/69 09/02/24 22:30 Pulse Oximetry 98 09/02/24 22:30 Oxygen Delivery Room Air 09/02/24 19:30 Discharge Plan Discharge Clinical Impression: Bimalleolar fracture of right ankle Patient Disposition: Home, Self-Care Condition: Stable Instructions: Antibiotic Form, Ankle Fracture (ED), Crutch Instructions (ED), Splint Care (ED) Additional Instructions: Please rest elevate and apply ice to your ankle. Please call your orthopedic surgeon in the morning to schedule an appointment as soon as possible Patient Language: Georgian Prescriptions: New hydrocodone-acetaminophen 5-325 mg tablet 1 tablet PO Q6H PRN (Reason: pain) 3 Days Qty: 12 0RF No Action norethindrone-e.estradiol-iron [Blisovi Fe 1.5/30 (28)] 1.5 mg-30 mcg (21)/75 mg (7) tablet 1 tablet PO DAILY magnesium oxide 400 mg magnesium tablet 400 mg PO DAILY IBgard 90 mg capsule,delayed,extend.release 90 mg PO BID Qty: 60 3RF sertraline 50 mg tablet 50 mg PO DAILY omeprazole magnesium 20 mg tablet,delayed release (DR/EC) 20 mg PO DAILY Qty: 30 2RF Follow-up/Referrals: PHYSICIAN NOT ON STAFF,NONSTAFF [Primary Care Provider] - Time of Disposition: 22:27
[2024-09-02] MEDS: HYDROmorphone HCL INJ (*CRX) 1 MG/ML SYR IV PUSH (20:25)
[2024-09-02 21:41] VITALS: BP 110/72; PULSE 90; RESP 17; O2SAT 95
[2024-09-02 22:30] VITALS: BP 114/69; PULSE 71; RESP 16; O2SAT 98
== END 2024-09-02 23:03 | disposition home or self-care (01) ==
PROVIDERS: Emergency Provider Emergency Medicine
DX: S82.841A Displaced bimalleolar fracture of right lower leg, initial encounter for closed fracture (principal); K58.9 Irritable bowel syndrome, unspecified; Z79.3 Long term (current) use of hormonal contraceptives; Z79.899 Other long term (current) drug therapy; X50.9XXA Other and unspecified overexertion or strenuous movements or postures, initial encounter; W00.0XXA Fall on same level due to ice and snow, initial encounter
CPT/HCPCS: 27810; 73600; 73700; 96374; 99285; A9270; J1171